=== PATIENT | male | born 1945 | race Two or more races ===

== ENCOUNTER 2020-03-02 04:49 | Emergency (ER) | payer MEDICARE, OTHER ==
[~2020-03-02] VITALS: Ht 167.6 cm; Wt 61.2 kg
--- NOTE | 2020-03-02 04:50 | NUR ---
PT BIBEMS C/O RAPID HEART RATE. UPON ARRIVAL PT'S HR IS 130-140. PT AAOX1, RR EVEN AND UNLABORED ON RA W NAD NOTED. PT CONNECTED TO THE SUPERVISOR [employer] AND POX. DR JOHNS AT BEDSIDE FOR EVAL.
[2020-03-02] MEDS ORDERED: EPINEPHRINE (1:10,000) SYRINGE 1 MG/10 ML DISP.SYRIN IVP ONE (04:51)
[2020-03-02] MEDS ORDERED: SUCCINYLCHOLINE CHLORIDE 20 MG/ML VIAL IV ONE (04:51)
[2020-03-02] MEDS ORDERED: ATROPINE SULFATE 1 MG/10 ML DISP.SYRIN IV ONE (04:51)
[2020-03-02] MEDS ORDERED: SODIUM BICARBONATE SYR 50 MEQ/50 ML DISP.SYRIN IV ONE (04:51)
[2020-03-02] MEDS ORDERED: AMIODARONE 450 MG in IV D5W 250 ML IV ONE (05:00)
[2020-03-02] MEDS ORDERED: AMIODARONE 150 MG in IV D5W 100 ML IV ONE (05:00)
--- NOTE | 2020-03-02 05:00 | NUR ---
IV LINE ESTABLISHED LAC 18 G. BLOOD COLLECTED AND SENT TO LAB
[2020-03-02] MEDS ORDERED: AMIODARONE 150 MG/3 ML VIAL IV ONE (05:04)
[2020-03-02 05:16] LABS: BASOPHILS % (AUTO) 0.4 % (0.0-2.0); HEMATOCRIT 32 % (39-51); HEMOGLOBIN 10.3 g/dL (13.5-17.5); LYMPHOCYTES # (AUTO) 0.8 /CMM (0.8-4.8); LYMPHOCYTES % (AUTO) 7.5 % (20.0-44.0); MEAN CORPUSCULAR HGB CONC 33 g/dl (31.0-36.0); MEAN CORPUSCULAR VOLUME 103 fL (80-96); MONOCYTES # (AUTO) 0.9 /CMM (0.1-1.30); MONOCYTES % (AUTO) 8.2 % (2.0-12.0); NEUTROPHILS # (AUTO) 9.2 /CMM (1.8-8.9); NEUTROPHILS % (AUTO) 83.9 % (43.0-81.0); PLATELET COUNT (AUTO) 146 /CMM (150-450); RED BLOOD CELL COUNT(AUTO) 3.09 MIL/uL (4.5-6.0); WHITE BLOOD COUNT (AUTO) 10.9 K/uL (4.3-11.0)
[2020-03-02] MEDS ORDERED: ENOXAPARIN SODIUM 80 MG/0.8 ML DISP.SYRIN SQ ONE (05:22)
[2020-03-02 05:24] LABS: CALCIUM, SERUM 8.9 mg/dL (8.5-10.1); CARBON DIOXIDE 23 mmol/L (21-32); CHLORIDE 99 mmol/L (98-107); CREATININE 1.8 mg/dL (0.6-1.3); GLUCOSE 193 mg/dL (74-106); POTASSIUM 5.7 mmol/L (3.5-5.1); SODIUM SERUM 137 mmol/L (136-145); UREA NITROGEN, BLOOD 51 mg/dL (7-18)
[2020-03-02] MEDS ORDERED: ENOXAPARIN SODIUM 60 MG/0.6 ML DISP.SYRIN SQ ONE (05:30)
[2020-03-02 05:37] LABS: ALANINE AMINOTRANSFERASE 308 U/L (12-78); ALBUMIN 3.1 g/dL (3.4-5.0); ALKALINE PHOSPHATASE 379 U/L (46-116); ASPARTATE AMINOTRANSFERASE 431 U/L (15-37); B-TYPE NATRIURETIC PEPTIDE 29376 PG/ML (0-125); BILIRUBIN,DIRECT 0.8 mg/dL (0.0-0.2); BILIRUBIN,TOTAL 2.3 mg/dL (0.2-1.0); TOTAL PROTEIN, SERUM 8.2 g/dL (6.4-8.2)
[2020-03-02 05:56] LABS: D-DIMER 3.64 mg/L(FEU (0.17-0.50)
[2020-03-02] MEDS ORDERED: CEFTRIAXONE 1 G VIAL ONE (05:59)
[2020-03-02] MEDS ORDERED: AZITHROMYCIN 500 MG VIAL ONE (05:59)
[2020-03-02] MEDS ORDERED: AZITHROMYCIN 500 MG in IV D5W 250 ML IV ONE (06:00)
[2020-03-02] MEDS ORDERED: CEFTRIAXONE 1 G in IV D5W 50 ML IV ONE (06:00)
--- NOTE | 2020-03-02 06:15 | NUR ---
COVID AND MRSA SWAB SENT TO LAB
--- NOTE | 2020-03-02 06:33 | NUR ---
URINE SENT TO LAB
[2020-03-02 06:34] LABS: C-REACTIVE PROTEIN 3.1 mg/dL (0.0-0.9)
[2020-03-02 06:47] LABS: APPEARANCE,URINE SL CLOUDY (CLEAR); BILIRUBIN,URINE NEGATIVE (NEGATIVE); BLOOD, URINE MODERATE Ery/uL (NEGATIVE); COLOR,URINE YELLOW (YELLOW); KETONES,URINE NEGATIVE (NEGATIVE); LEUKOCYTE ESTERASE ,URINE NEGATIVE (NEGATIVE); NITRITE, URINE NEGATIVE (NEGATIVE); PH,URINE 5.5 (5.0-8.0); PROTEIN,URINE 100 mg/dl (NEGATIVE); UGLUCOSE NEGATIVE (NEGATIVE); UROBILINOGEN,URINE 0.2 EU/dL (0.2)
[2020-03-02 06:54] LABS: BACTERIA,URINE Moderate /HPF (None Seen); RBC,URINE 21-50 /HPF (0-2); SQUAMOUS EPITHELIAL CELL,UR Few /HPF (None Seen)
[2020-03-02 08:08] VITALS: BP 90/50
--- NOTE | 2020-03-02 08:16 | NUR ---
PATIENT FOUND WITH NO PULSE, RESP OF <10. CHECKED PATIENT'S CHART, POLST FORM EMPTY. CALLED DR. JOYCE FOR OLIVIA BLUE.
--- NOTE | 2020-03-02 08:17 | NUR ---
ADDENDUM: Intravenous End Time Documentation: Amiodarone 150 mg/ D5W 100 ML: start time: 0512 AM End time: 0817 AM ; Site: PIV # 20, ; port #1 Amiodarone drip stopped after the CODE BLUE - see nurses notes
--- NOTE | 2020-03-02 08:22 | NUR ---
INTUBATED SIZE 7.5CM.
--- NOTE | 2020-03-02 08:24 | NUR ---
NO ROSC. PATIENT'S WRIST BAND SHOWED DNR. DR. JOYCE PRONOUNCED HIS .
--- NOTE | 2020-03-02 08:35 | NUR ---
dr olivier yo paged
--- NOTE | 2020-03-02 09:07 | NUR ---
dr aguayo paged again
--- NOTE | 2020-03-02 09:30 | NUR ---
Family present in the facility with Dr. Cedillo.
--- NOTE | 2020-03-02 10:15 | NUR ---
PER MS. 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
--- NOTE | 2020-03-02 12:17 | NUR ---
PATIENT HAS NO BELONGINGS, PPOST MORTEM CARE PROVIDED. PATIENT TRANSFERR[place] [facility] [place]
== END 2020-03-02 12:19 | disposition expired ==
LOC: ER 04:50
DX: I48.91 Unspecified atrial fibrillation (principal); Z66 Do not resuscitate; J18.9 Pneumonia, unspecified organism; Z95.810 Presence of automatic (implantable) cardiac defibrillator; Z86.74 Personal history of sudden cardiac arrest; R13.10 Dysphagia, unspecified; Z93.1 Gastrostomy status; I11.0 Hypertensive heart disease with heart failure; I50.9 Heart failure, unspecified
CPT/HCPCS: 31500; 36415; 71045; 80048; 80076; 81001; 82550; 82728; 83605 ×2; 83615; 83880; 84145; 84484; 85025; 85378; 85730; 86140; 87040 ×2; 87077; 87086; 87186; 87635; 92950; 93005; 96365; 96366; 96368; 96372; 99285; J0171; J0282 ×3; J0330; J0456; J0461; J0696 ×2; J1650; J3490; J7060 ×5; 81000-TC